=== PATIENT | male | born 1940 | race Caucasian/White ===

== ENCOUNTER 2019-01-19 13:45 | Inpatient (IN) | payer OTHER ==
[~2019-01-19] VITALS: Ht 167.6 cm; Wt 58.6 kg
--- NOTE | 2019-01-19 16:28 | NUR ---
PT ARRIVED DIRECT ADMIT FOR BRADYCARDIA FROM [facility]. PT ALERT AND ORIENTED X4. DENIES PAIN AND SOA. DESPITE DENYING SOA PT RR IS 22. 2LNC PLACED. PT REPORTS COMFORT AFTER. VSS. PUT IMMEDIATELY TO [employer] SPECIALIST AND EKG COMPLETED. PT IS SR WITH PVCS. DR COLLINS PAGED FOR ORDERS. NO CALL BACK OF YET. NO DISTRESS NOTED. NO VISITORS AT BEDSIDE. PT DENIES QUESTIONS OR CONCERNS REGARDING POC.
--- NOTE | 2019-01-19 18:59 | NUR ---
PT C/O LOWER ABD PAIN AND INABILITY TI URINATE. BLADDER SCAN SHOWED 817ML RETAINED URINE. URINARY CATH PLACED WITHOUT ISSUE. SCANT AMOUNT OF BRIGHT RED BLOOD COMING FROM PENIS AFTER PLACEMENT. DR COLLINS AT BEDSIDE. UNCONCERNED WITH AMOUNT OF BLOOD. MAGAÑA CLAMPED AFTER 600ML CAME OUT RIGHT AWAY. WILL UNCLAMP MOMENTARILY TO AVOID BLADDER SPASMS. NO DISTRESS NOTED. PT REPORTS RELIEF FROM ABD PAIN.
[2019-01-19 19:32] LABS: HEMATOCRIT 33.7 % (42.0-52.0); HEMOGLOBIN 11.6 gm/dL (14.0-18.0); MCH 35.8 pg (26.0-34.0); MCHC 34.4 g/dL (28.0-37.0); MCV 104.2 fL (80.0-100.0); RBC 3.24 mil/uL (4.50-6.00); RDW 16.2 % (10.5-14.5); WBC 8.6 thou/uL (4.0-11.0)
[2019-01-19 19:40] LABS: CALCIUM 7.6 mg/dL (8.5-10.1); CREATININE 2.2 mg/dL (0.7-1.3); POTASSIUM 3.8 mmol/L (3.5-5.1)
[2019-01-19 19:46] LABS: ALBUMIN 2.1 g/dL (3.4-5.0); TOTAL BILIRUBIN 0.1 mg/dL (<0.1-1.0); TOTAL PROTEIN 4.9 g/dL (6.4-8.2)
[2019-01-19 19:48] LABS: PROTIME 9.9 Seconds (9.3-11.4)
[2019-01-19 19:50] LABS: CHOLESTEROL 101 mg/dL (<200); HDL CHOLESTEROL 38 mg/dL (>40); LDL CHOLESTEROL 25 mg/dL (<100); TC:HDL 2.7 Ratio (Not establshd); TRIGLYCERIDE 191 mg/dL (<150); TROPONIN-I 0.08 ng/mL (<0.06); VLDL 38 mg/dL (<40)
[2019-01-19 20:01] VITALS: BP 125/62
[2019-01-19 20:14] VITALS: BP 125/62
[2019-01-19 20:14] LABS: TSH 2.742 uIU/mL (0.358-3.740)
--- NOTE | 2019-01-19 20:38 | NUR ---
20:37>CALLED AUTOMOBILE TESTER LUIGI DRUMMOND. I INFORMED HER THAT THE ANSWERING SERVICE OF DR KOVACS SAID THAT THEY ARE NOT TAKING CALL FROM [facility] ESTABLISHED PATIENT. I ALSO RELAYED TROPONIN RESULT TO HER. SHE ORDERED TO CONSULT DR VALDES[facility]. READBACK DONE AND ORDERS ENTERED.
[2019-01-19 20:49] LABS: FOLIC ACID 27.5 ng/mL (8.6-58.9)
[2019-01-19 23:10] LABS: URINE BILIRUBIN NEGATIVE (Negative); URINE BLOOD 2+ (Negative); URINE CLARITY CLEAR; URINE COLOR YELLOW; URINE GLUCOSE-RANDOM* NEGATIVE (Negative); URINE KETONES NEGATIVE (Negative); URINE LEUKOCYTES TRACE (Negative); URINE NITRITE NEGATIVE (Negative); URINE PROTEIN (DIPSTICK) TRACE (Negative); URINE SPECIFIC GRAVITY 1.015 (1.005-1.035); URINE UROBILINOGEN 0.2 E.U./dl (0.2-1.0)
[2019-01-19 23:20] LABS: MUCUS 0-3 Light strn/LPF (None Seen); SQUAMOUS None Seen /LPF (0-3)
[2019-01-19 23:21] LABS: BACTERIA None Seen /HPF (None Seen); CASTS None Seen /LPF (None Seen); CRYSTALS None Seen /LPF (None Seen); URINE RBC 3-10 Few /HPF (0-2); URINE WBC 6-15 Few /HPF (0-5); WBC CLUMPS Occasional (None Seen)
[2019-01-20 01:22] VITALS: BP 153/83
[2019-01-20 04:06] VITALS: BP 155/88
[2019-01-20 05:01] LABS: HEMATOCRIT 35.8 % (42.0-52.0); HEMOGLOBIN 12.2 gm/dL (14.0-18.0); MCH 35.3 pg (26.0-34.0); MCV 103.8 fL (80.0-100.0); RBC 3.45 mil/uL (4.50-6.00); WBC 8.6 thou/uL (4.0-11.0)
[2019-01-20 05:21] LABS: ALBUMIN 2.1 g/dL (3.4-5.0); CALCIUM 8.1 mg/dL (8.5-10.1); MAGNESIUM 1.8 mg/dL (1.8-2.4); PHOSPHORUS 2.7 mg/dL (2.5-4.9); POTASSIUM 3.8 mmol/L (3.5-5.1); TROPONIN-I 0.07 ng/mL (<0.06)
--- NOTE | 2019-01-20 05:55 | NUR ---
AOX4, GENERALIZED WEAKNESS, PUPILS 2MM EBRTL, AFIB ON HE MONITOR, PULSES 2+/2+. CLEAR TO COARSE LUNG S OUNDS, DIMINISHED ON THE BASES, O2 AT 3 L/NC. COMPLAINT OF PAIN ON THE RIGHT HEEL, 12/17. DTI ON THE HEEL NOTED. REDNESS ON THE RIGHT LATERAL HEEL ALSO NOTED. BLANCHABLE REDNESS IN BETWEEN THE BUTTOCKS NOTED WHICH PATIENT VERBALIZED THAT THE SORE COMES AND GOES. PICTURES OF THE HEELS DONE AND ATTACHED TO CHART. PRN MEDS FOR THE HEEL PAIN GIVEN WHICH AFFORDED PARTIAL RELIEF. RIGHT HEEL PROPPED ON TOP OF A PILLOW. MAGAÑA CATHETER SITE WITH SLIGHT BLEEDING NOTED, PERIANAL CARE DONE, MOISTURE BARRIER APPLIED. TURNING DONE Q 2HRS. IV ON THE RIGHT UPPER ARM INTACT AND FLUSHES WELL. NSS AT 75 ML/HR STARTED ON THE LEFT AC, INFUSING WELL. FF UP POC. EFT AC INTACT AND
[2019-01-20 07:15] VITALS: BP 150/77
[2019-01-20 11:10] VITALS: BP 142/71
[2019-01-20 15:40] VITALS: BP 135/72
--- NOTE | 2019-01-20 18:43 | EKG ---
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 : 1940 Requested By: Rabia Altamirano Order Number: [id number] MD: Leif Rosales Measurements Intervals [place] Rate: 62 P: -8 [place]: 184 QRS: -15 QRSD: 100 T: 46 QT: 406 QTc: 413 Interpretive Statements Sinus rhythm Ventricular premature complex Low voltage limb leads anteroseptal infarct age indeterminate No previous ECG available for comparison Electronically Signed On 01-20-2019 18:43:14 CDT by Leif Rosales [email or web address] ��������������������������������������������� <ELECTRONICALLY SIGNED> ���������������������������������������� By: Leif Rosales MD ��������������������������������������������� 01/20/19 1843 1608 1608 Leif Rosales MD /EPI
--- NOTE | 2019-01-20 19:32 | NUR ---
ASSUMED CARE OF PT AT 0700. PT A&OX4, FLAT EFFECT AND DOES NOT WANT TO TALK. PT STATED HE COULD NOT WALK AND REFUSED PHYSICAL THERAPY. I TALKED TO PT AND EXPLAINED WHY HE NEEDED TO WORK WITH PHYSICAL THERAPY. HE THEN ACCEPTED. PHYSICAL THERAPY ABLE TO GET PT TO CHAIR WITH MOD ASSIST OF 2 AND GATE BELT. PT STAYED IN CHAIR FOR ONE HOUR. PT HAD BOOT PLACED ON RIGHT FOOT FOR REDNESS AND PAIN. PT HAD APPROX 50% OF MEALS. PT WAS SINUS RHYTHM WITH PVCS. WILL CONT WITH POC.
[2019-01-20 20:00] VITALS: BP 153/71
[2019-01-21 00:05] LABS: GLYCOHEMOGLOBIN (HGB A1C) 7.6 % (4.8-5.6)
--- NOTE | 2019-01-21 02:52 | NUR ---
ASSESSMENT DOCUMENTED. DENIES ANY PAIN. PATIENT WANTING TO SLEEP TONIGHT AND ASKED FOR HIS SLEEPING PILL. TURNING DONE Q 2 HRS DONE, ORAL CARE RENDERED. RIGHT BOOTS ON, PERIANAL AND FOLY CATH CARE DONE. MOISTURE BARRIER APPLIED. FF UP POC.
[2019-01-21 05:53] LABS: ALBUMIN 1.9 g/dL (3.4-5.0); CALCIUM 7.3 mg/dL (8.5-10.1); CREATININE 1.6 mg/dL (0.7-1.3); PHOSPHORUS 2.5 mg/dL (2.5-4.9); POTASSIUM 3.8 mmol/L (3.5-5.1)
[2019-01-21 07:55] VITALS: BP 137/75
[2019-01-21 11:50] VITALS: BP 126/78
[2019-01-21 15:25] VITALS: BP 155/88
--- NOTE | 2019-01-21 15:58 | NUR ---
ASSUMED CARE OF PT AT 0700. PT A&OX4, UP WITH WALKER AND STANDBY. PT AMBULATED HALLWAYS TODAY. PT DENIES SHORTNESS OF BREATH OR PAIN. PT'S BLOOD PRESSURE LOW AND ISOSORBIDE AND HYDRALAZINE HELD. PT ASYMPTOMATIC FOR LOW BLOOD PRESSURE. PT WAS SINUS RHYTHM WITH BBB ON TELEMETRY WILL CONT TO [facility]. POSSIBLE HOME TOMORROW PER DR. PENNINGTON.
[2019-01-21 16:00] VITALS: BP 155/88
--- NOTE | 2019-01-21 16:04 | NUR ---
ASSUMED CARE OF PT AT 0700. PT A&OX4, FLAT EFFECT. PT UP TO CHAIR WITH ASSIST OF TWO. PT STATES HE IS AFRAID OF FALLING. VITALS WITHIN NORMAL LIMITS AND PT WAS SINUS RHYTHM ON TELEMETRY. PT DENIED PAIN/COMPLAINT THIS SHIFT. PT IS EATTING VERY WELL AND CONSUMING MOST OF HIS MEALS. SON VISITED TODAY. WILL CONT WITH POC.
[2019-01-21 19:52] VITALS: BP 162/88
--- NOTE | 2019-01-21 23:51 | EKG ---
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 : 1940 Requested By: Madeleine Harris Order Number: [id number] MD: Leif Rosales Measurements Intervals [place] Rate: 74 P: 34 MA: 167 QRS: -24 QRSD: 100 T: 34 QT: 400 QTc: 444 Interpretive Statements Sinus rhythm Low voltage in the limb leads poor R wave progression nonspecific st/t wave changes Compared to ECG 01/19/2019 16:08:24 Ventricular premature complex(es) no longer present Electronically Signed On 01-21-2019 23:51:12 CDT by Leif Rosales [email or web address] ��������������������������������������������� <ELECTRONICALLY SIGNED> ���������������������������������������� By: Leif Rosales MD ��������������������������������������������� 01/21/19 2351 0734 0734 Leif Rosales MD /EPI
[2019-01-22 03:29] LABS: ALBUMIN 1.9 g/dL (3.4-5.0); CALCIUM 7.8 mg/dL (8.5-10.1); CREATININE 1.8 mg/dL (0.7-1.3); PHOSPHORUS 2.3 mg/dL (2.5-4.9); POTASSIUM 4.2 mmol/L (3.5-5.1)
[2019-01-22 05:00] VITALS: BP 142/75
[2019-01-22 07:30] VITALS: BP 145/68
--- NOTE | 2019-01-22 07:37 | NUR ---
assessment as documented. denies any pain. able to sleep well. turning done q 2 hrs. maintained on fall precaution. ff up poc.
--- NOTE | 2019-01-22 10:58 | 2DMMODE ---
[facility] [place] [address] 2 D/M-MODE ECHOCARDIOGRAM Name: RAND RODRÍGUEZ Room #: 213-P ADM IN M.R.#: [id number] ������������� Admission: 01/19/19 ������������� Attend Phys: Guille Olivarez MD Discharge: ��� ������������� ��� Date of : 40 Date of Service: 01/22/19 1057 �� Report #: [id number] �������� ��������������������������������������������[id number] THIS REPORT FOR: //name// APPROVED REPORT Study performed: 01/22/2019 10:17:43 EXAM: Limited 2D, Doppler, and color-flow Echocardiogram Patient Location: [facility] Room #: 213 Status: routine BSA: 1.66 HR: 71 bpm BP: 145/68 mmHg Rhythm: NSR Other Information Study Quality: Fair Indications Abbreviated echo for LV function, Afib. Hx: COPD, HLP, HTN, DM. (Complete echo done at [facility] 4 days ago) Aortic Valve AoV Peak Bridger.: 0.98 m/s AO Peak Gr.: 3.84 mmHg Mitral Valve E/A Ratio: 0.5 MV Decel. Time: 467.66 ms MV E Max Bridger.: 0.39 m/s MV A Bridger.: 0.80 m/s MV PHT: 135.62 ms Tricuspid Valve RAP Estimate: 5.00 mmHg Left Ventricle The left ventricle is normal size. Left ventricular systolic function is normal. LVEF is 50-55%. Mild diastolic dysfunction is present (impaired relaxation pattern). Right Ventricle The right ventricle is normal size. The right ventricular systolic function is normal. [facility] [address] [place] [address] 2 D/M-MODE ECHOCARDIOGRAM Name: RAND RODRÍGUEZ Room #: 213-P ADM IN M.R.#: [id number] ������������� Admission: 01/19/19 ������������� Attend Phys: Guille Olivarez MD Discharge: ��� ������������� ��� Date of : 40 Date of Service: 01/22/19 1057 �� Report #: [id number] �������� ��������������������������������������������[id number] [place] The left atrium size is normal. The right atrium size is normal. Aortic Valve The aortic valve is not well visualized but appears moderately thickened. No aortic regurgitation is present. There is no aortic valvular stenosis. Mitral Valve The mitral valve is normal in structure. Mild to moderate mitral regurgitation. Tricuspid Valve The tricuspid valve is normal in structure. There is no tricuspid valve regurgitation noted. Unable to assess PA pressure. Great Vessels IVC is normal in size and collapses >50% with inspiration. Pericardium There is no pericardial effusion. <Conclusion> The left ventricle is normal size. LVEF is 50-55%. The aortic valve is not well visualized but appears moderately thickened. The mitral valve is normal in structure. Mild to moderate mitral regurgitation. The tricuspid valve is normal in structure. There is no tricuspid valve regurgitation noted. Unable to assess PA pressure. There is no pericardial effusion. ��������������������������������������������� <ELECTRONICALLY SIGNED> ���������������������������������������� By: Leif Rosales MD ��������������������������������������������� 01/22/19 1057 1057 105 Leif Rosales MD /INF
[2019-01-22 11:50] VITALS: BP 167/83
--- NOTE | 2019-01-22 14:16 | NUR ---
I have reviewed the documentation by OBI HERNÁNDEZ from 01/22/19 to 01/22/19 and I concur with it. ROLANDO ANDERSON
--- NOTE | 2019-01-22 14:19 | NUR ---
Met with patient who reports his son lives with him in the home. 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 All needs on one level. Discussed post acute care. He reports "a place like [facility] Discussed casemgt would assist with skilled placement and discussed referrals and options. Patient reports he already sp with someone and said he is agreeable to [facility]. Sp with son Adolph who reports when patient was at [facility] he told someone there he was agreeable to [facility] which is located in their area. Son reports he was not sure he would want to transfer there since that is were his . he reports if patient is agreeable son agreeable for referral. Son reports he moved in to fathers home temporarily but he feels may be permanent as his father has needed more help. He reports he works during day and his father was not eating at home and becoming weaker. He told son he was "giving up." Son reports he uses a walker in home and agreeable to determine if patient receptive to post acute care. referral to [facility] for review.
[2019-01-22 15:55] VITALS: BP 156/87
--- NOTE | 2019-01-22 15:57 | NUR ---
FAXED REFERRAL TO [facility] SPOKE WITH STEWART IN ADM. SHE RECEIVED REFERRAL AND WILL REVIEW. ANTICIPATE DC TOMORROW 01/23. DCP TO FOLLOW.
--- NOTE | 2019-01-22 17:09 | NUR ---
VSS NSR PAC. LUNGS CLEAR AND DIMINISHED, O2 SAT RA IS 96%. PT REMAINS WEAK AND REFUSING TO GET OUT OF BED ALTHOUGH TODAY PT WITH MAX TO RISE AND MOD TO CHAIR TOOK STEPS TO CHAIR. AFFECT REMAINS FLAT AND NOT VERY TALKITIVE. WILL CONTINUE TO MONITER AND CARE FOR PTPER PLAN OF CARE
[2019-01-22 20:19] VITALS: BP 138/68
[2019-01-23 04:44] VITALS: BP 151/73
--- NOTE | 2019-01-23 05:41 | NUR ---
ASSUMED CARE AT 1900. PT ALERT AND ORIENTED WITH A FLAT AFFECT. DENIES PAIN. SOA, CHEST PAIN OR ANY RESP. DISTRESS. VITALS STABLE. AMBIEN GIVEN LAST NIGHT FOR SLEEP. PT HAD A RESTFUL NIGHT., NO FURTHER C/O NOTED. WILL CONTINUE TO FOLLOW POC.
[2019-01-23] MEDS ORDERED: FLOMAX0.4 MG PO (08:52)
[2019-01-23] MEDS ORDERED: CEFUROXIME250 MG PO (08:52)
[2019-01-23] MEDS ORDERED: ELIQUIS2.5 MG PO (08:53)
[2019-01-23] MEDS ORDERED: CARVEDILOL3.125 MG PO (08:53)
[2019-01-23] MEDS ORDERED: MIRALAX17 GM PO (08:53)
[2019-01-23 08:58] VITALS: BP 143/78
--- NOTE | 2019-01-23 10:41 | NUR ---
Spoke with patient re [facility] accepting of patient with bed avail today and dc orders. Patient reports his son visited last evening and they reviewed the list and actually interested in [facility]. Sp with son Adolph and confimed referral to [facility]. Son aware today that patient ready for dc. Plan to update son on referral.
--- NOTE | 2019-01-23 10:51 | NUR ---
FAXED REFERRAL TO [facility] LEFT MSG WITH RICHARD IN ADM. THAT PT. IS DC READY TODAY.
[2019-01-23 12:18] VITALS: BP 128/72
--- NOTE | 2019-01-23 14:11 | NUR ---
PT. DISCHARGING TODAY TO [facility]. FAXED DC ORDERS/SUMMARY TO FACILITY SPOKE WITH RICHARD IN ADM. SHE RECEIVED DC ORDERS. DCP ARRANGED TRANSPORT VIA [facility] FOR [phone]. NOTIFIED PT'S SON (HORACE) OF DISCHARGE AND TIME OF TRANSPORT. UNIT NOTIFIED AND CHART COPY PER US. RN TO CALL REPORT TO [phone].
--- NOTE | 2019-01-23 16:02 | NUR ---
ASSESSMENT DOCUMENTED. PT ALERT AND ORIENTED. VSS. SEEN BY DR. COLLINS. ORDERS GIVEN TO DISCHARGE PT TO SNF. REPORT CALLED IN TO [facility]. FAMILY NOTIFIED. PT LEFT THE FACILITY WITH ALL HIS BELONGING.
== END 2019-01-23 16:12 | DRG 308 ==
LOC: 2N 13:45
PROVIDERS: ADMIT Hospitalist
DX: I48.0 Paroxysmal atrial fibrillation (principal); E43 Unspecified severe protein-calorie malnutrition; E87.1 Hypo-osmolality and hyponatremia; N18.4 Chronic kidney disease, stage 4 (severe); E86.0 Dehydration; J44.9 Chronic obstructive pulmonary disease, unspecified; E11.22 Type 2 diabetes mellitus with diabetic chronic kidney disease; N40.0 Benign prostatic hyperplasia without lower urinary tract symptoms; M19.90 Unspecified osteoarthritis, unspecified site; I12.9 Hypertensive chronic kidney disease with stage 1 through stage 4 chronic kidney disease, or unspecified chronic kidney disease; E78.5 Hyperlipidemia, unspecified; F17.210 Nicotine dependence, cigarettes, uncomplicated; I27.20 Pulmonary hypertension, unspecified; E86.1 Hypovolemia; N40.1 Benign prostatic hyperplasia with lower urinary tract symptoms; R33.8 Other retention of urine; D63.8 Anemia in other chronic diseases classified elsewhere; Z68.20 Body mass index [BMI] 20.0-20.9, adult; Z90.49 Acquired absence of other specified parts of digestive tract; Z98.1 Arthrodesis status; Z87.19 Personal history of other diseases of the digestive system; Z86.718 Personal history of other venous thrombosis and embolism
CPT/HCPCS: 10797